=== PATIENT | female | born 2005 | race Caucasian/White ===

== ENCOUNTER 2025-02-15 20:04 | Emergency (ER) | payer BC, SELFPAY ==
[2025-02-15 20:27] VITALS: BP 114/75; PULSE 77; RESP 16; TEMP 37.2; O2SAT 99; BMI 17.5
--- NOTE | 2025-02-15 20:29 | CRLHL7_ITS ---
For Patients: As a result of the Century Cures Act, medical imaging exams and procedure reports are released immediately into your electronic medical record. You may view this report before your referring provider. If you have questions, please contact your health care provider. INDICATION: Fall TECHNIQUE: Three views left foot FINDINGS/IMPRESSION: Normal alignment. Faint linear transverse lucency along the base of the 5th metatarsal suspicious for extremely subtle nondisplaced fracture recommend correlation with site of pain. Dictated by Janna Molina MD @ 02/15/2025 9:32:31 PM (Electronically Signed)
--- NOTE | 2025-02-15 21:33 | ED.LOWEXIN ---
HPI - Extremity Injury (Lower) General Chief Complaint: Extremity Pain/Injury, Lower Stated Complaint: L foot injury Time Seen by Provider: 02/15/25 20:47 History of Present Illness HPI Narrative: This 19-year-old female comes in with an injury to her left ankle. She was running prior to arrival here and rolled her left ankle has pain on the lateral aspect of her foot and ankle. She attempted to put some weight on this but had distinct pain when doing so so she is not ambulated since the fall. She does not report any other injury. Review of Systems Status of ROS: Reports: 10 or more systems reviewed and unremarkable except as noted in History and below Narrative: Constitutional: No fevers, no weight gain or loss. Eyes: No discharge. No vision changes. HENT: No congestion, no sore throat, no ear pain. Cardiovascular: No chest pain, no palpitations. Respiratory: No shortness of breath, no wheezes, no cough. Gastrointestinal: No abdominal pain, no vomiting, no diarrhea. Genitourinary: No dysuria, no hematuria. Musculoskeletal: Left ankle injury as described above. Skin: No rashes, no pruritis. Neurological: No dizziness, weakness, sensory change, speech change. Endo/Heme/Allergies: No bruising or bleeding. No polydipsia. Pysch: no suicidality, no anxiety, no insomnia. All other systems reviewed and are negative. [facility] Medical History (Updated 02/15/25 @ 22:00 by Colin Dennis MD) No significant past medical history Surgical History (Updated 02/15/25 @ 21:46 by Robbie Simpson RN) No significant past surgical history Social History Smoking Status: Never smoker Second hand tobacco smoke exposure: No How often do you have a drink containing alcohol: never AUDIT-C Alcohol total score: 0 Non-prescribed substance use: denies use Exam Narrative: Exam Narrative: Constitutional: Well-developed, well-nourished, no acute distress. HEENT: Normocephalic, atraumatic. Neck: Normal range of motion. Nontender. Supple. Heart: Regular. No murmurs. Normal rate. Intact distal pulses. Lungs: Clear to auscultation. No chest discomfort. No wheezes, rhonchi, or rales. Abdomen: Normal bowel sounds. Nontender. No rebound tenderness. Genitalia: Deferred. Back: No midline tenderness. Normal range of motion. Extremities: Left ankle and foot has distinct pain on the lateral aspect but no sign of swelling or deformity. Pain is more focused on the proximal base of the left 5th metatarsal. Skin: Intact. No rash. Warm. No erythema or pallor. Neurologic: No altered sensation. No weakness. Alert and oriented. Psychiatric: No suicidality. No anxiety or depression. No insomnia. Nursing notes and vitals signs are reviewed. Const: Vital Signs, click to edit/add: Vital Signs - 24 hr 02/15/25 20:27 Temperature 98.9 F Pulse Rate [Pulse Oximeter] 77 Respiratory Rate 16 Blood Pressure [Ri t Upper Arm] 114/75 Pulse Oximetry 99 Oxygen Delivery Me thod Room Air Course Vital Signs Vital signs: Initial Vital Signs Temperature 98.9 F 02/15/25 20:27 Temperature Source Temporal Artery Scan 02/15/25 20:27 Pulse Rate 77 02/15/25 20:27 Respiratory Rate 16 02/15/25 20:27 Blood Pressure 114/75 02/15/25 20:27 Blood Pressure Mean 88 02/15/25 20:27 Blood Pressure Position Sitting 02/15/25 20:27 Pulse Oximetry 99 02/15/25 20:27 Oxygen Delivery Method Room Air 02/15/25 20:27 Vital Signs Temperature 98.9 F 02/15/25 20:27 Pulse Rate 77 02/15/25 20:27 Respiratory Rate 16 02/15/25 20:27 Blood Pressure 114/75 02/15/25 20:27 Pulse Oximetry 99 02/15/25 20:27 Oxygen Delivery Method Room Air 02/15/25 20:27 Temperature 98.9 F 02/15/25 20:27 Pulse Rate 77 02/15/25 20:27 Respiratory Rate 16 02/15/25 20:27 Blood Pressure 114/75 02/15/25 20:27 Pulse Oximetry 99 02/15/25 20:27 Oxygen Delivery Method Room Air 02/15/25 20:27 MDM - Extremity Injury (Lower) MDM Narrative Medical decision making narrative: This patient comes in with an ankle and foot injury that occurred prior to arrival. X-ray images show no obvious findings by my review. Radiologist report states that there may be a very subtle crack that shows in the proximal 5th metatarsal. I am able to see this area when 0 Brayan in significantly. The patient does have distinct tenderness in this area. The patient was fitted for crutches and an Juan wrap was applied. I did discuss the role of immobilization but stated that this is not a Gamboa type fracture and is nondisplaced and may represent a subtle crack in the bone. The patient prefers to wear comfortable shoes that will provide some immobilization and she will ambulate with crutches without bearing weight on foot. I advised her to follow-up with orthopedic clinic for ongoing management. She received an [employer] prescription for Toradol. Discharge Plan Discharge Clinical Impression: Ankle injury Patient Disposition: Home, Self-Care Condition: Stable Additional Instructions: Use crutches for ambulating. Take pain medicines also as needed and directed. Follow-up with orthopedic clinic for ongoing diagnosis and management. Return if worsening. Stand Alone Forms: [employer] Info Instructions
--- OUTSIDE RECORDS SUMMARY | 2025-02-15 22:07 | XMS_ITS | Clinical Summary ---
Author Organization [facility] Address [address] [place] [address] Care Team Providers Care Garbage Collector Supervisor Name Role Phone Soila Kuhn Primary Care Provider [phone] Source Comments You are receiving this document as you are listed as the primary care provider,follow-up provider, or the patient has been referred to you for consultation.This is in compliance with the Medicare and[facility] EHR Incentive Program,which states Providers who transition their patient to another setting of careor provider of care or refers their patient to another provider of care shouldprovide summary care record for each transition of care or referral. [facility] Allergies No known active allergies Medications Vitamin D, Ergocalciferol, 1.25 MG (69164 UT) CAPS TAKE 1 CAPSULE BY MOUTH ONCE WEEKLY FOR 8 WEEKS, THEN ONCE MONTHLY THEREAFTER 9 Capsule 3 4 Active Magnesium Glycinate 100 MG CAPSIndications: Insomnia, unspecified type Take 1 Capsule (100 mg) by mouth daily at bedtime. 90 Capsule 3 4 Active sertraline (ZOLOFT) 50 MG tabletIndication s:Anxiety (HRC),Avoidant-r estrictive food intake disorder (ARFID),Depressi on, unspecified depression type Take 1 Tablet (50 mg) by mouth daily. 90 Tablet 3 4 Active ALPRAZolam (XANAX) 0.25 MG tablet PLEASE SEE ATTACHED FOR DETAILED DIRECTIONS 4 Active traZODone (DESYREL) 50 MG tablet Take 1 Tablet (50 mg) by mouth at bedtime as needed. 4 Active risperiDONE (RISPERDAL) 0.5 MG tablet Take by mouth. 4 Active hydrOXYzine HCl (ATARAX) 10 MG tabletIndication s:Anxiety (HRC),Avoidant-r estrictive food intake disorder (ARFID) take 1 tablet by mouth every day as needed 90 Tablet 2 4 Active Active Problems Problem Noted Date Diagnosed Date Depression 07/02/2023 Anxiety 07/02/2023 Insomnia 02/24/2023 Symptoms of depression 02/24/2023 History of psychological trauma 02/24/2023 Nocturia 05/01/2018 Polydipsia 05/01/2018 Autism spectrum disorder 07/26/2017 Generalized anxiety disorder 06/06/2017 Seborrheic dermatitis of scalp 04/24/2017 Hand dermatitis 04/24/2017 Overview (04/24/2017): Followed by Dr. Mcdaniel Avoidant-restrictive food intake disorder (ARFID ) 12/12/2016 Overview (06/06/2017): Diagnosed at [facility] 11/2016. Currently receiving outpatient family centered care. Hospital[facility] 05/[facility]. 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 06/2015: BMI <1st%ile, continued restrictive eating and fear of fullness/gaining weight. No bradycardia; labs all wnl. Referred to and Nutrition. Discussed with at [facility]: rec weekly weight checks with goal of reaching BMI 15 within 6 weeks, otherwise re-refer to [facility]. Adjustment disorder with anxiety 04/20/2015 04/17/2018 Immunizations Immunization Administration Dates Next Due DTaP 09/02/2004, 4,2003,2003 DTaP-IPV (Kinrix, 4-6 yrs) 11/03/2008 Flu Vac (3+ yrs) 01/20/2014 Fluzone Qiv Multidose Vial 0 .25 (6-35 Mos) 01/11/2019 HepB Ped/Adol (0-18 yrs) 09/02/2004,2003,0 2003 Hib, Unspecified Formulation 09/02/2004,09/26/19 04,2003 IPV (Polio) 09/02/2004,2003,2003 Influenza IIV4 (Quadrivalent ) 0.5mL (77363) 01/25/2022,01/11/2019,01/22/2018 Influenza LAIV (Nasal, 2-49 yrs) 01/27/2021,01/11 MCV4 Menveo 2m.+ (two vial) 10/27/2016 MMR 04/26/2011,04/18/2005 Pfizer Monovalent 12+ Purple Top 11/04/2020,09/11 Pneumococcal 7, PED 2003,2003 Tdap 11/24/2014 Varicella 10/14/2009,04/18/2005 Family History Medical History Relation Name Comments No Known Problems Father No Known Problems Mother No Known Problems Brother Celiac Disease Cousin maternal 1st cousin psoriatic arthritis Maternal Aunt 1 Multiple Sclerosis Maternal Aunt 2 No Known Problems Maternal Grandfather Diabetes, Type II Maternal Grandmother no t sure Anxiety Paternal Grandfather Baird Arthritis Paternal Grandfather Baird Depression Paternal Grandfather Baird Anxiety Paternal Grandmother Grandma Depression Paternal Grandmother Grandma Psoriasis Paternal Grandmother Grandma Relation Name Status Comments Father Alive 1970; 6'2; rec alled later sheron Mother Alive 1971; 5'7; men arche 15 Brother Alive 2006; no pubert y yet; Cousin Maternal Aunt 1 Alive Maternal Aunt 2 Alive Maternal Grandfather Alive Maternal Grandmother Alive Paternal Grandfather Baird Alive Paternal Grandmother Grandma Alive Social History Tobacco Use Types Packs/Day Years Used Date Smoking Tobacco: Never Passive Smoke Exposure: Never Smokeless Tobacco: Never Tobacco Cessation:Counseling Given: Not Answered Alcohol Use Standard Drinks/Week Comments Yes 0 (1 standard drink = 0.6 oz pur e alcohol) PHQ-2 Answer Date Recorded PHQ-2 Score 6 02/28/2023 Comments No Sex and Gender Information Value Date Recorded Sex Assigned at Not on file Legal Sex Female 10:40 AM CDT Gender Identity Not on file Sexual Orientation Not on file Last Filed Vital Signs Vital Sign Reading Time Taken Comments Blood Pressure 100/61 01/12/2024 4:58 PM CDT Pulse 87 01/12/2024 4:58 PM CDT Temperature 36.2 C (97.1 F) 01/12/2024 4:58 PM CDT Respiratory Rate 18 01/12/2024 4:58 PM CDT Oxygen Saturation 98% 01/12/2024 4:58 PM CDT Inhaled Oxygen Concentration - - Weight 45.4 kg (100 lb) 06/30/2023 9:36 AM CDT Height 165.1 cm (5' 5) 02/28/2023 1:02 PM BILINGUAL SECRETARY Body Mass Index 16.64 02/28/2023 1:02 PM BILINGUAL SECRETARY Plan of Treatment Health Maintenance Due Date Last Done Comments Cervical Cancer Screening Due 2003 Chlamydia 2003 Hep C Screening (Preventive Services) 2003 MenB Immunization Discussion 2003 HPV Vaccine (1 - 3-dose series) 05/23/2018 HIV Screening (Preventive Services) 2019 Adult Preventive Visit 06/14/2023 3, 03/24/2020, 01/21/2019, Additional history exists COVID-19 Vaccine ( season) 2024 11/04/2020, 10/02/2020 Influenza Vaccine (#1) 2024 2, 01/27/2021, 01/11/2019, Additional history exists DTaP/Tdap/Td Vaccine (7 - Tdap) 11/24/2024 11/24/2014, 11/03/2008, 09/02/2004, Additional history exists Zoster/Shingles Vaccine (1 of 2) 05/23/2053 Pneumococcal Vaccine Aged Out 2003, 09/26/19 04 No longer eligible based on patient's age to complete this topic HepB Vaccine Completed 09/02/2004, 09/10, 2003 Hib Vaccine Completed 09/02/2004, 09/10, 2003 IPV (Polio) Vaccine Completed 11/03/2008, 09/02/2004, 2003, Additional history exists Varicella Vaccine Completed 10/14/2009, 04/18/2005 MCV4 Vaccine Aged Out 10/27/2016 No longer eligi ble based on patient's age to complete this topic HepA Vaccine Aged Out No longer eligi ble based on patient's age to complete this topic Insurance [facility] FED[employer]AL [facility] [employer] [facility] [employer] [facility] [employer] Care Teams Garbage Collector Supervisor Relationship Specialty Start Date End Date Soila Kuhn DO [address] [place] [phone] PCP - General Family Practice 04/11/23
--- OUTSIDE RECORDS SUMMARY | 2025-02-15 22:07 | XMS_ITS | Encounter Summary ---
Author Organization [facility] Address [address] [place] [address] Care Team Providers Care Mold Stripper Name Role Phone Soila Kuhn DO Primary Care Provider [phone] Encounter Details Date Type Department Care Team (Late st Contact Info) Description 03/16/2017 Scanned History External to Transferred Record, Provider [facility] [employer] Social History Tobacco Use Types Packs/Day Years Used Date Smoking Tobacco: Never Comments No Sex and Gender Information Value Date Recorded Sex Assigned at Not on file Legal Sex Female 10:40 AM CDT Gender Identity Not on file Sexual Orientation Not on file documented as of this encounter Plan of Treatment Not on file documented as of this encounter Visit Diagnoses Not on filedocumented in this encounter Care Teams Mold Stripper Relationship Specialty Start Date End Date Soila Kuhn DO [address] [place] [phone] PCP - General Family Practice 04/11/23 documented as of this encounter
--- OUTSIDE RECORDS SUMMARY | 2025-02-15 22:07 | XMS_ITS | Encounter Summary ---
Author Organization [facility] Address [address] [place] [address] Care Team Providers Care Return To Vendor Name Role Phone Soila Kuhn DO Primary Care Provider [phone] Encounter Details Date Type Department Care Team (Late st Contact Info) Description 05/12/2017 Outside Hospital External to [facility], Provider DISCHARGE CLINICAL SUMMARY Social History Tobacco Use Types Packs/Day Years Used Date Smoking Tobacco: Never Smokeless Tobacco: Never Alcohol Use Standard Drinks/Week Comments No 0 (1 standard drink = 0.6 oz pur e alcohol) Comments No Sex and Gender Information Value Date Recorded Sex Assigned at Not on file Legal Sex Female 10:40 AM CDT Gender Identity Not on file Sexual Orientation Not on file documented as of this encounter Plan of Treatment Not on file documented as of this encounter Visit Diagnoses Not on filedocumented in this encounter Care Teams Return To Vendor Relationship Specialty [place] [address] [place] [address] [place] [phone] PCP - General Family Practice 04/11/23 documented as of this encounter
--- OUTSIDE RECORDS SUMMARY | 2025-02-15 22:07 | XMS_ITS | Encounter Summary ---
Author Organization [facility] Address [address] [place] [address] Care Team Providers Care Fuel Cell Systems Engineer Name Role Phone Soila Kuhn DO Primary Care Provider [phone] Encounter Details Date Type Department Care Team (Late st Contact Info) Description 02/23/2017 Scanned History External to Transferred Record, Provider [...] on filedocumented in this encounter Care Teams Fuel Cell Systems Engineer Relationship Specialty Start Date End Date Soila Kuhn DO [address] [place] [phone] PCP - General Family Practice 04/11/23 documented as of this encounter
--- OUTSIDE RECORDS SUMMARY | 2025-02-15 22:07 | XMS_ITS | Encounter Summary ---
Author Organization [facility] Address [address] [place] [address] Care Team Providers Care Psychiatric Security Nurse Name Role Phone Soila Kuhn DO Primary Care Provider [phone] Encounter Details Date Type Department Care Team (Late st Contact Info) Description 03/10/2016 Correspondence None [facility], Provider MEDICAL EQUIPMENT PROOF OF DELIVERY Social History Tobacco Use Types Packs/Day Years [...] on filedocumented in this encounter Care Teams Psychiatric Security Nurse Relationship Specialty Start Date End Date Soila Kuhn DO [address] [place] [place] [phone] PCP - General Family Practice 04/11/23 documented as of this encounter
--- OUTSIDE RECORDS SUMMARY | 2025-02-15 22:07 | XMS_ITS | Clinical Summary ---
Author Organization [facility] Address [address] [place] [address] Care Team Providers Care Mobility Specialist Name Role Phone [facility] Unavailable Unavailable Manuel Massey MD Primary Care Provider [phone] Allergies No known active allergies Medications multivitamin (MVI) tablet Take 1 tablet by mouth once daily. 1 07/26/2017 Active medication order composer Fiber gummy once daily. 0 07/26/2017 Active sertraline (ZOLOFT) 100 mg tablet Take 100 mg by mouth once daily. 10/01/2020 Active cloNIDine HCL (CATAPRES) 0.1 mg tablet 11/22/2021 Active Active Problems Problem Noted Date Diagnosed Date Eating disorder 07/26/2017 Autism spectrum disorder 07/26/2017 Immunizations Immunization Administration Dates Next Due DTaP-IPV (Kinrix) 11/03/2008, 5,2003,09/25,2003 Hepatitis B (Peds) 09/02/2004,2003, 004 Hib Conjugate, Unspecified 09/02/2004,2003 ,2003 Influenza, IIV3 (Age >=3 years) 01/20/2014 MENINGOCOCCAL VACCINE 2 VIAL [id number] (MENVEO) 10/27/2016 MMR 04/26/2011,04/18/2005 Pneumococcal conj 7-Valent (Prevnar 7) 4,2003 Tdap 11/24/2014 Varicella Vaccine 10/14/2009,04/18/2005 Family History Relation Name Status Comments Father Alive Mother Alive Social History Tobacco Use Types Packs/Day Years Used Date Smoking Tobacco: Never Smokeless Tobacco: Never Alcohol Use Standard Drinks/Week Comments No 0 (1 standard drink = 0.6 oz pur e alcohol) PHQ-2 Answer Date Recorded PHQ-2 Score 0 05/15/2018 Social Connections Answer Date Recorded Frequency of Communication with Friends and Fami ly Not on file 09/03/2021 Comments No Sex and Gender Information Value Date Recorded Sex Assigned at Not on file Legal Sex Female 8:18 PM HEALTH PROMOTION COORDINATOR Gender Identity Not on file Sexual Orientation Not on file Last Filed Vital Signs Vital Sign Reading Time Taken Comments Blood Pressure 96/70 09/24/2023 5:34 PM CDT Pulse 92 09/24/2023 5:34 PM CDT Temperature 36.3 C (97.4 F) 09/24/2023 5:34 PM CDT Respiratory Rate 12 09/24/2023 5:34 PM CDT Oxygen Saturation 99% 09/24/2023 5:34 PM CDT Inhaled Oxygen Concentration - - Weight 44.4 kg (97 lb 14.2 oz) 09/24/2023 5:34 P M CDT Height 165.1 cm (5' 5) 09/24/2023 5:34 PM CDT Body Mass Index 16.29 09/24/2023 5:34 PM CDT Plan of Treatment Health Maintenance Due Date Last Done Comments HIV for age 15-65 05/23/2018 HPV series for age 9-45 (1 - 3-dose series) 05/23/2018 Depression screening for age 12+ 07/26/2018 07/26/2017 BMI (ht and wt on same day) for age 18+ 05/23/2021 Hepatitis C screening for ag e 18-79 05/23/2021 Pap test for age 21-65 05/23/2024 COVID-19 vaccine series (3 - 2024- season) 2024 11/04/2020, 10/02/2020 Influenza Vaccine (#1) 2024 01/20/2014 Tetanus booster 11/24/2024 11/24/2014 RSV vaccine for adults or (1 - 1-dose 75+ series) 05/23/2078 Pneumococcal series for age 6-49 Aged Out 2003, 2003 No longer eligible based on patient's age to complete this topic Hepatitis B series for 19+ Completed 09/02, 2003, 2003 Meningococcal series for age 11-21 Aged Out 10/27/2016 No longer eligible b ased on patient's age to complete this topic [place] [address] [place] [address] [place] [address] [employer] [place] [employer] [facility] FED EMP [facility] [employer] EMP Care Teams Mobility Specialist Relationship Specialty Start Date End Date Manuel Massey MD [address] [place] [id number] PCP - General Pediatric 10/03/18 [facility], [facility] 07/26/17
--- OUTSIDE RECORDS SUMMARY | 2025-02-15 22:07 | XMS_ITS | Encounter Summary ---
Author Organization [facility] Address [address] [place] [address] Care Team Providers Care Powdered Metal Supervisor Name Role Phone Soila Kuhn DO Primary Care Provider [phone] Encounter Details Date Type Department Care Team (Late st Contact Info) Description 04/30/2015 Emergency Room External to [facility] WRIST PAIN PROBLEM Social History Tobacco Use Types Packs/Day Years [...] on filedocumented in this encounter Care Teams Powdered Metal Supervisor Relationship Specialty Start Date End Date Soila Kuhn DO [address] [place] [phone] PCP - General Family Practice 04/11/23 documented as of this encounter
--- OUTSIDE RECORDS SUMMARY | 2025-02-15 22:07 | XMS_ITS | Encounter Summary ---
Author Organization [facility] Address [address] [place] [address] Care Team Providers Care Muffler Mechanic Name Role Phone Soila Kuhn DO Primary Care Provider [phone] Encounter Details Date Type Department Care Team (Late st Contact Info) Description 11/25/2014 Correspondence External to External, [place] [address] IMMUNZATION RECORD Social History Tobacco Use Types Packs/Day Years [...] on filedocumented in this encounter Care Teams Muffler Mechanic Relationship Specialty Start Date End Date Soila Kuhn DO [address] [place] [phone] PCP - General Family Practice 04/11/23 documented as of this encounter
--- OUTSIDE RECORDS SUMMARY | 2025-02-15 22:07 | XMS_ITS | Encounter Summary ---
Author Organization [facility] Address [address] [place] [address] Care Team Providers Care Gem Cutter Name Role Phone Soila Kuhn DO Primary Care Provider [phone] Encounter Details Date Type Department Care Team (Late st Contact Info) Description 05/02/2017 Outside Hospital External to [facility], Provider EATING DISORDERS CONSULTATION Social History Tobacco Use Types Packs/Day Years [...] on filedocumented in this encounter Care Teams Gem Cutter Relationship Specialty [place] [address] [place] [address] [place] [phone] PCP - General Family Practice 04/11/23 documented as of this encounter
--- OUTSIDE RECORDS SUMMARY | 2025-02-15 22:07 | XMS_ITS | Encounter Summary ---
Author Organization [facility] Address [address] [place] [address] Care Team Providers Care Cattle Inspector Name Role Phone Soila Kuhn DO Primary Care Provider Encounter Details Date Type Department Care Team (Late st Contact Info) Description 11/24/2014 Correspondence None No Primary/Referring, Phy MEDICAL EQUIPMENT PROOF OF DELIVERY Social History [...] on filedocumented in this encounter Care Teams Cattle Inspector Relationship Specialty Start Date End Date Soila Kuhn DO [address] [place] [phone] PCP - General Family Practice 04/11/23 documented as of this encounter
--- OUTSIDE RECORDS SUMMARY | 2025-02-15 22:07 | XMS_ITS | Encounter Summary ---
[facility] Address [address] [place] [address] Care Team Providers Care Creative Director Name Role Phone Solia Kuhn DO Primary Care Provider [phone] Encounter Details Date Type Department Care Team (Late st Contact Info) Description 02/22/2016 Correspondence External to External, [place] [address] [employer] Social History Tobacco Use Types Packs/Day Years [...] on filedocumented in this encounter Care Teams Creative Director Relationship Specialty Start Date End Date Soila Kuhn DO [address] [place] [id number] PCP - General Family Practice 04/11/23 documented as of this encounter
--- OUTSIDE RECORDS SUMMARY | 2025-02-15 22:07 | XMS_ITS | Encounter Summary ---
[facility] Organization [facility] Address [address] [place] [address] Care Team Providers Care Shake Maker Name Role Phone Soila Kuhn DO Primary Care Provider [phone] Encounter Details Date Type Department Care Team (Late st Contact Info) Description 05/04/2017 Outside Hospital External to [facility], Provider INTEGRATIVE MEDICINE CONSULTATION Social History Tobacco Use Types Packs/Day [...] on filedocumented in this encounter Care Teams Shake Maker Relationship Specialty [place] [address] [place] [address] [place] [id number] PCP - General Family Practice 04/11/23 documented as of this encounter
--- OUTSIDE RECORDS SUMMARY | 2025-02-15 22:07 | XMS_ITS | Encounter Summary ---
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
[2025-02-15 22:10] VITALS: BP 114/75; BP 121/74; PULSE 71; PULSE 77; RESP 16; TEMP 37.2; O2SAT 99
== END 2025-02-15 22:10 | disposition home or self-care (01) ==
LOC: ED 22:05
PROVIDERS: Emergency Provider Emergency Medicine Emergency Medical Services
DX: M25.572 Pain in left ankle and joints of left foot (principal); X50.1XXA Overexertion from prolonged static or awkward postures, initial encounter
CPT/HCPCS: 73630; 99283; 99284